=== PATIENT | male | born 1990 | race Caucasian/White ===

== ENCOUNTER 2019-12-25 10:41 | Emergency (ER) | payer BC, SELFPAY ==
[~2019-12-25] VITALS: Ht 177.8 cm; Wt 86.2 kg
[2019-12-25 11:07] VITALS: Ht 177.8 cm; Wt 86.2 kg
[2019-12-25 11:44] LABS: BASOPHIL % 0.1 % (0-2); CALCIUM 8.5 mg/dL (8.5-10.1); CARBON DIOXIDE 25.8 mmol/L (21-32); CHLORIDE SERUM 104 mmol/L (98-107); GFR1 > 60 mL/min; GLUCOSE SERUM 104 mg/dL (74-106); PLATELET COUNT 195 x10^3mcL (130-400); POTASSIUM SERUM 3.5 mmol/L (3.5-5.1); RED CELL DISTRIBUTION WIDTH 14.4 % (11.5-14.5); SODIUM SERUM 138 mmol/L (136-145)
[2019-12-25 11:49] LABS: ALKALINE PHOSPHATASE 41 U/L (46-116); ALT/SGPT 24 U/L (16-63); AST/SGOT 14 U/L (15-37); LACTIC DEHYDROGENASE (LDH) 121 U/L (100-190); TOTAL PROTEIN, SERUM 6.9 g/dL (6.4-8.2)
[2019-12-25 11:56] LABS: C REACTIVE PROTEIN < 0.2 mg/dL (<=0.9)
[2019-12-25 12:03] LABS: microscopic required? NO
[2019-12-25 12:22] LABS: urine erythrocyte NEGATIVE (NEGATIVE)
[2019-12-25 13:56] VITALS: BP 105/65
== END 2019-12-25 14:55 | disposition home or self-care (01) ==
LOC: ED 10:41
PROVIDERS: Specialist
DX: R50.9 Fever, unspecified (principal); M79.10 Myalgia, unspecified site; R53.1 Weakness
CPT/HCPCS: 83880; 87804; J1885; J7030; Q0092